=== PATIENT | female | born 1965 | race Two or more races ===

== ENCOUNTER 2023-11-26 09:38 | Emergency (ER) | payer OTHER ==
[~2023-11-26] VITALS: Ht 157.5 cm; Wt 73.0 kg
[2023-11-26 10:14] VITALS: BP 145/82; PULSE 75; RESP 18; TEMP 97.8; O2SAT 97
[2023-11-26] MEDS: methylPREDNISolone SOD SUCC 125 MG/2 ML VL IM ONE (10:21)
[2023-11-26] MEDS: KETOROLAC TROMETH 30 MG/ML 1ML VIAL IM ONE (10:22)
== END 2023-11-26 11:23 | disposition home or self-care (01) ==
LOC: ER 09:38
DX: S16.1XXA Strain of muscle, fascia and tendon at neck level, initial encounter (principal); S13.4XXA Sprain of ligaments of cervical spine, initial encounter; W01.198A Fall on same level from slipping, tripping and stumbling with subsequent striking against other object, initial encounter; Y93.89 Activity, other specified; Y92.89 Other specified places as the place of occurrence of the external cause; Y99.0 Civilian activity done for income or pay
CPT/HCPCS: 70450; 72125; 96372; 99285; J1885; J2919

== ENCOUNTER 2025-01-29 07:24 | Inpatient (IN) | payer MEDICAID, OTHER ==
[2025-01-28] MEDS: InsuLIN REG 1unit/0.01ml Soln (100units/ml) SC SCH (17:02)
[~2025-01-29] VITALS: Ht 157.5 cm; Wt 74.5 kg
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
[2025-01-29 08:12] VITALS: PULSE 76; RESP 24; O2SAT 100
[2025-01-29 08:22] LABS: Hematocrit 41.1 % (36.0-46.0); Hemoglobin 13.9 g/dL (12.2-16.2); Mean Corpuscular Hemoglobin 26.9 pg (28.0-32.0); Mean Corpuscular Volume 79.6 fL (80.0-100.0); Nucleated Red Blood Cells % 0.0 %
[2025-01-29 08:34] LABS: Alanine Aminotransferase 20 U/L (7-40); Albumin 4.6 g/dL (3.2-4.8); Anion Gap 12 (5-15); BUN/Creatinine Ratio 15.3 (10.0-20.0); Blood Urea Nitrogen 11 mg/dL (9-23); Calcium 9.8 mg/dL (8.7-10.4); Carbon Dioxide 22 mmol/L (20-31); Chloride 105 mmol/L (98-107); Potassium 4.3 mmol/L (3.5-5.1); Sodium 139 mmol/L (136-145); Total Protein 7.7 g/dL (5.7-8.2)
[2025-01-29 08:35] LABS: Bilirubin, Total 0.6 mg/dL (0.2-1.0); Creatine Kinase IFCC 77 U/L (34-145)
[2025-01-29 08:36] LABS: Alkaline Phosphatase 118 U/L (46-116); Glucose 174 mg/dL (74-106)
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
[2025-01-29] MEDS: HYDROcodone-ACET 5/325MG TAB PO ONE (09:09)
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
[2025-01-29] MEDS: KETOROLAC TROMETH 30 MG/ML 1ML VIAL IV ONE (10:01)
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
[2025-01-29] MEDS ORDERED: DEXTROSE (50%) 50ML SYRG IV PRN (12:30)
[2025-01-29] MEDS ORDERED: ONDANSETRON HCL 4 MG/2 ML VIAL IV PRN (12:30)
[2025-01-29] MEDS ORDERED: NITROGLYCERIN 0.4 MG SL TAB SL PRN (12:30)
[2025-01-29] MEDS ORDERED: MORPHINE SULFATE INJ 2 MG/ml SYRG IV PRN (12:30)
[2025-01-29 13:00] VITALS: PULSE 70; RESP 16; O2SAT 95
[2025-01-29] MEDS: ACETAMINOPHEN 325 MG TAB PO PRN (16:00)
[2025-01-29] MEDS ORDERED: MELA3TAB27 PO (16:19)
[2025-01-29] MEDS ORDERED: SEMA2INJ3 SC (16:19)
[2025-01-29] MEDS ORDERED: LISI10TA34 PO (16:19)
[2025-01-29] MEDS ORDERED: DULO20CA PO (16:19)
[2025-01-29] MEDS ORDERED: HYDR-3682 PO (16:19)
[2025-01-29 17:00] VITALS: BP 164/95; PULSE 95; RESP 12; TEMP 98.2; O2SAT 98
[2025-01-29] MEDS: ACCU-CHEK COMFORT CURVE STRIP VI SCH (17:07)
[2025-01-29] MEDS: KETOROLAC TROMETH 30 MG/ML 1ML VIAL IV PRN (20:00)
[2025-01-29 21:00] VITALS: BP 121/67; PULSE 82; RESP 19; TEMP 98.6; O2SAT 96
[2025-01-29] MEDS: POLYETHYLENE GLYCOL 17 GM PWDR PO ONE (21:00)
[2025-01-30 01:00] VITALS: BP_SYST 112; BP_SYST 136; BP_DIAS 64; BP_DIAS 69; PULSE 76; PULSE 80; RESP 18; RESP 20; TEMP 97.6; TEMP 98.6; O2SAT 95; O2SAT 96
[2025-01-30 05:00] VITALS: BP 127/83; PULSE 81; RESP 18; TEMP 98.3; O2SAT 98
[2025-01-30 06:16] LABS: Hematocrit 38.2 % (36.0-46.0); Hemoglobin 13.0 g/dL (12.2-16.2); Mean Corpuscular Hemoglobin 27.2 pg (28.0-32.0); Mean Corpuscular Volume 80.0 fL (80.0-100.0); Nucleated Red Blood Cells % 0.1 %
[2025-01-30 06:41] LABS: Alanine Aminotransferase 16 U/L (7-40); Albumin 4.3 g/dL (3.2-4.8); Alkaline Phosphatase 102 U/L (46-116); Anion Gap 10 (5-15); BUN/Creatinine Ratio 19.0 (10.0-20.0); Bilirubin, Total 0.7 mg/dL (0.2-1.0); Blood Urea Nitrogen 15 mg/dL (9-23); Calcium 9.4 mg/dL (8.7-10.4); Carbon Dioxide 23 mmol/L (20-31); Chloride 103 mmol/L (98-107); Potassium 4.2 mmol/L (3.5-5.1); Total Protein 7.2 g/dL (5.7-8.2)
[2025-01-30 07:03] LABS: Glucose 224 mg/dL (74-106); Sodium 136 mmol/L (136-145)
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
[2025-01-30 09:00] VITALS: BP 147/79; PULSE 67; RESP 12; TEMP 98; O2SAT 97
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
[2025-01-30] MEDS: LISINOPRIL 20 MG TAB PO SCH (10:42)
[2025-01-30] MEDS: ENOXAPARIN SOD 40 MG/0.4 ML SYRINGE SC SCH (10:43)
[2025-01-30 11:14] LABS: Urine Protein, UAD Negative (Negative)
[2025-01-30 11:26] LABS: Amphetamine Screen, Urine Neg (NEGATIVE); Barbiturate Scree,Urine Neg (NEGATIVE); Benzodiazephine Screen, Urine Neg (NEGATIVE); Cannabinoid Screen, Urine Neg (NEGATIVE); Cocaine Screen, Urine Neg (NEGATIVE); Opiate Scree,Urine Neg (NEGATIVE); Phencyclidine Screen, Urine Neg (NEGATIVE)
[2025-01-30 13:00] VITALS: BP 136/75; PULSE 68; RESP 16; TEMP 98.4; O2SAT 95
[2025-01-30] MEDS: CYCLOBENZAPRINE HCL 10 MG TAB PO SCH (14:13)
--- NOTE | 2025-01-30 15:28 | DVH ---
EXAM: MRI MRI NECK W OUT CONTRAST INDICATION: Evaluation for cervical injury TECHNIQUE: Multiplanar, multisequence imaging of the cervical spine without contrast. COMPARISON: CT CERVICAL WITHOUT CONTRAST on DOS: 01/29/25 FINDINGS: [ANATOMY]: Straightening of the normal cervical lordosis, which may be seen in the setting of patient positioning versus muscular spasm. [BONES]: The vertebral bodies are normal in height, alignment, and marrow signal. [CERVICAL CORD]: The cervical cord is normal in signal and morphology. Effacement of the ventral and dorsal thecal sac and at C4-5, C5-6, C6-7. [DISCS]: Diffuse disc desiccation. disc bulges at C5-6 and C6-7 with 3-4 mm posterior extension. Stephanie nant disc protrusion of the left paracentral to lateral recess at C6-7. [FACETS]: Unremarkable [OTHER]: There is no prevertebral soft tissue swelling. The visualized paraspinal soft tissues are no rmal. IMPRESSION: 1. No acute fracture or subluxation of the cervical spine. 2. Multilevel degenerative changes of the cervical spine, as above. 3. Effacement of the ventral and dorsal thecal sacs at C5-6 and C6-7 with slight contour of the parti cularly of the ventral aspect.
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
[2025-01-30 17:00] VITALS: BP 132/73; PULSE 70; RESP 20; TEMP 97.7; O2SAT 98
[2025-01-30 21:00] VITALS: BP 126/78; PULSE 79; RESP 17; TEMP 98.1; O2SAT 97
[2025-01-30] MEDS: HYDROcodone-ACET 5/325MG TAB PO PRN (21:06)
[2025-01-31] MEDS: MELATONIN 5 MG TAB PO ONE (01:53)
[2025-01-31 05:00] VITALS: BP 121/76; PULSE 64; RESP 17; TEMP 98.2; O2SAT 98
[2025-01-31] MEDS: DOCUSATE SOD 100 MG CAP PO PRN (05:56)
[2025-01-31 08:00] VITALS: PULSE 62; RESP 18; O2SAT 96
[2025-01-31 09:00] VITALS: BP 102/66; PULSE 62; RESP 15; TEMP 98.4; O2SAT 97
[2025-01-31] MEDS ORDERED: BACL10TA PO (14:30)
[2025-01-31] MEDS ORDERED: CEPH250C PO (14:30)
[2025-01-31] MEDS ORDERED: HYDR-4902 PO (14:30)
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
[2025-01-31 15:04] VITALS: BP 102/66; PULSE 66; RESP 16; TEMP 98.4; O2SAT 96
== END 2025-01-31 15:40 | disposition home or self-care (01) | DRG 347 ==
LOC: ER 07:24 → EDBD 07:24 → OVERFLOW 12:19 → CENTRAL 14:31
PROVIDERS: ADMIT Student in an Organized Health Care Education/Training Program; ATTEND Student in an Organized Health Care Education/Training Program
DX: M47.22 Other spondylosis with radiculopathy, cervical region (principal); E11.65 Type 2 diabetes mellitus with hyperglycemia; M50.11 Cervical disc disorder with radiculopathy, high cervical region; M43.12 Spondylolisthesis, cervical region; S16.1XXA Strain of muscle, fascia and tendon at neck level, initial encounter; E66.3 Overweight; E78.5 Hyperlipidemia, unspecified; N30.00 Acute cystitis without hematuria; G56.02 Carpal tunnel syndrome, left upper limb; I10 Essential (primary) hypertension; E86.9 Volume depletion, unspecified; W01.0XXA Fall on same level from slipping, tripping and stumbling without subsequent striking against object, initial encounter; Y93.89 Activity, other specified; Y92.89 Other specified places as the place of occurrence of the external cause; Y99.8 Other external cause status; Z68.30 Body mass index [BMI] 30.0-30.9, adult; Z79.899 Other long term (current) drug therapy
CPT/HCPCS: 36415; 70450; 70547; 72125; 73110; 73221; 80053; 80307; 80320; 81001; 82550; 82962; 84484; 85025; 87086; 96374; 96375; G0378; J1100; J1815; J1885